=== PATIENT | female | born 1990 | race Caucasian/White ===

== ENCOUNTER 2020-07-24 10:28 | Emergency (ER) | payer MEDICAID, SELFPAY ==
[~2020-07-24] VITALS: Ht 160 cm; Wt 76.2 kg
[2020-07-24 10:30] VITALS: BP 101/65
--- NOTE | 2020-07-24 10:30 | NUR ---
PT SENT TO [facility] TENT FOR MSE.
--- NOTE | 2020-07-24 10:35 | NUR ---
C/O SOB STARTING TUESDAY, TESTED COVID + ON TUESDAY. PT IS 29 WEEKS , OBGYN DR. ARELLANO. VSS AT THIS TIME. HX ASTHMA.
--- NOTE | 2020-07-24 12:28 | NUR ---
Patient ambulated to bed 6 for further care. RN evaluating patient at bedside.
[2020-07-24] MEDS ORDERED: NACL 0.9% 1,000 ML IV ONE (12:40)
--- NOTE | 2020-07-24 13:12 | NUR ---
FHR 157 IN LOWER RIGHT QUADRANT
--- NOTE | 2020-07-24 14:00 | NUR ---
Patient discharged with v/s stable. Written and verbal after care instructions about cough given and explained. Patient alert, oriented and verbalized understanding of instructions. Ambulatory with steady gait. All questions addressed prior to discharge. ID band removed. Patient advised to follow up with PMD. Rx of zofran, mucinex, norco given. Pt understands she should take mainly tylenol, and norco if absolutely needs pain control. Patient educated on indication of medication including possible reaction and side effects. Opportunity to ask questions provided and answered.
[2020-07-24 14:02] VITALS: BP 101/65
== END 2020-07-24 13:30 | disposition home or self-care (01) ==
LOC: MED 10:28
DX: O99.513 Diseases of the respiratory system complicating pregnancy, third trimester (principal); U07.1 COVID-19; Z88.5 Allergy status to narcotic agent; Z88.0 Allergy status to penicillin; Z88.1 Allergy status to other antibiotic agents; Z3A.30 30 weeks gestation of pregnancy
CPT/HCPCS: 96360; 99283